=== PATIENT | female | born 1975 | race Caucasian/White ===

== ENCOUNTER 2017-09-18 02:11 | Emergency (ER) | payer MEDICAID ==
[~2017-09-18] VITALS: Ht 170.2 cm; Wt 77.0 kg
[~2017-09-18 02:11] MED LIST: ALBU18HF2 IH; ALBU18HF2 INH; ALBU8.5H8 IH; CLIN-79 PO; CYCL-1 PO; DIAZ5TAB4 PO; DIPH-423 PO; HYDR-569 PO; IBUP-1051 PO; IBUP-1986 PO; KETO10TA2 PO; NAPR250T4 PO; NAPR500T4 PO; NO HOME MEDS; PHEN-716 PO; PRED20TA PO
[2017-09-18] MEDS ORDERED: NAPR-56 PO (02:34)
[2017-09-18] MEDS ORDERED: CLIN300C3 PO (02:34)
[2017-09-18] MEDS ORDERED: clindamycin 150mg capsule PO ONE (02:35)
[2017-09-18] MEDS ORDERED: HYDROcodone/acetaminophen 10/325mg tab PO ONE (02:35)
[2017-09-18] MEDS ORDERED: naproxen 500mg tablet PO ONE (02:35)
[2017-09-18 03:09] VITALS: BP 132/85
== END 2017-09-18 03:10 | disposition home or self-care (01) ==
LOC: ER 02:11
DX: K04.7 Periapical abscess without sinus (principal); G89.29 Other chronic pain; G43.909 Migraine, unspecified, not intractable, without status migrainosus; F12.10 Cannabis abuse, uncomplicated; F15.10 Other stimulant abuse, uncomplicated; Z88.0 Allergy status to penicillin; Z88.1 Allergy status to other antibiotic agents; Z79.899 Other long term (current) drug therapy
CPT/HCPCS: 99284

== ENCOUNTER 2017-10-31 22:41 | Emergency (ER) | payer MEDICAID ==
[~2017-10-31] VITALS: Ht 170.2 cm; Wt 60.4 kg
[~2017-10-31 22:41] MED LIST changes: +NAPR-996 PO; -NAPR500T4 PO
[2017-10-31] MEDS ORDERED: normal saline 1000ML IV soln IVB ONE (22:55)
[2017-10-31] MEDS ORDERED: acetaminophen 325mg tablet PO ONE (23:05)
[2017-10-31 23:25] LABS: BASOPHILS % (AUTO) 0.2 % (0-1); EOSINOPHILS % (AUTO) 0.1 % (0-6); HEMATOCRIT 41.7 % (35.0-45.0); HEMOGLOBIN 14.6 g/dl (12.0-16.0); LYMPHOCYTES # (AUTO) 0.4 X10'3 (1.1-4.8); LYMPHOCYTES % (AUTO) 8.8 % (21-51); MEAN CORPUSCULAR HEMOGLOBIN 28.5 PG (27.0-31.0); MEAN CORPUSCULAR HGB CONC 35.1 % (33.0-36.5); MEAN CORPUSCULAR VOLUME 81.2 FL (78-98); MEAN PLATELET VOLUME 6.8 FL (7.4-10.4); MONOCYTES # (AUTO) 0.3 X10'3 (0-0.9); MONOCYTES % (AUTO) 5.9 % (2-12); NEUTROPHILS # (AUTO) 4.3 X10'3 (1.8-7.7); PLATELET COUNT 237 X10'3 (140-440); RED BLOOD COUNT 5.13 X10'6 (4.20-5.60); RED CELL DISTRIBUTION WIDTH 13.3 % (11.5-14.5); WHITE BLOOD COUNT 5.1 X10'3 (4.5-11.0)
[2017-10-31 23:37] LABS: PARTIAL THROMBOPLASTIN TIME 31 SECONDS (22-32); PROTHROMBIN TIME 10.5 SECONDS (9.0-12.0)
[2017-10-31 23:41] LABS: ALANINE AMINOTRANSFERASE 35 U/L (12-78); ALBUMIN 3.9 G/DL (3.4-5.0); ALKALINE PHOSPHATASE 58 IU/L (46-116); ANION GAP 10 (8-16); BILIRUBIN,TOTAL 0.4 MG/DL (0.1-1.0); BLOOD UREA NITROGEN 8 MG/DL (7-18); BUN/CREATININE RATIO 10.3 (6.6-38.0); CALCIUM 8.8 MG/DL (8.5-10.1); CHLORIDE 97 MMOL/L (99-107); CREATININE 0.78 MG/DL (0.40-0.90); GLUCOSE 105 MG/DL (70-104); MAGNESIUM 1.4 MG/DL (1.5-2.4); SODIUM 133 MMOL/L (135-145); TOTAL CARBON DIOXIDE 25.8 MMOL/L (24-32); TOTAL PROTEIN 7.7 G/DL (6.4-8.2); eGFR 82 ML/MIN
[2017-10-31 23:54] LABS: ASPARTATE AMINO TRANSFERASE 28 U/L (10-37); POTASSIUM 3.9 MMOL/L (3.5-5.1)
[2017-11-01 00:52] LABS: CLARITY,URINE SLIGHTLY CLOUDY (Clear); COLOR,URINE YELLOW (Yellow); GLUCOSE, URINE NEGATIVE (Neg); KETONES,URINE NEGATIVE (Neg); LEUKOCYTE ESTERASE ,URINE NEGATIVE (Neg); NITRITES, URINE POSITIVE (Neg); OCCULT BLOOD,URINE NEGATIVE (Neg); PROTEIN,URINE NEGATIVE (Neg); UROBILINOGEN,URINE 0.2 E.U/dL (0.2-1.0)
[2017-11-01 00:53] LABS: URINE HCG NEGATIVE (NEG)
[2017-11-01 01:00] LABS: UA COLLECTION TYPE CLN CATCH MIDSTREAM
[2017-11-01 01:02] LABS: BACTERIA,URINE 4+ /HPF (Neg); RBC,URINE NONE SEEN /HPF (0-2); SQUAMOUS EPITHELIAL CELL,UR MODERATE /LPF (FEW); WBC,URINE 0-4 /HPF (0-4)
[2017-11-01 01:20] VITALS: BP 114/76
== END 2017-11-01 01:21 | disposition home or self-care (01) ==
LOC: ER 22:42
DX: J11.1 Influenza due to unidentified influenza virus with other respiratory manifestations (principal); G89.29 Other chronic pain; G43.909 Migraine, unspecified, not intractable, without status migrainosus; F17.200 Nicotine dependence, unspecified, uncomplicated; F12.10 Cannabis abuse, uncomplicated; F15.10 Other stimulant abuse, uncomplicated; Z88.0 Allergy status to penicillin; Z88.1 Allergy status to other antibiotic agents; Z79.899 Other long term (current) drug therapy
CPT/HCPCS: 36415; 71045; 80053; 81001; 81025; 83605; 83735; 84145; 85025; 85610; 85730; 87040; 87077; 87088; 87186; 87502; 87503; 93005; 96360; 96361; 99285; J7030

== ENCOUNTER 2018-06-17 20:46 | Emergency (ER) | payer MEDICAID ==
[~2018-06-17] VITALS: Ht 170.2 cm; Wt 71.0 kg
[~2018-06-17 20:46] MED LIST changes: -CLIN-79 PO; +CLIN150C8 PO; +HYDR-4383 PO; -HYDR-569 PO
[2018-06-17 21:00] VITALS: BP 141/89
== END 2018-06-17 23:36 | disposition left against medical advice (07) ==
LOC: ER 20:46
DX: H92.11 Otorrhea, right ear (principal); Z53.21 Procedure and treatment not carried out due to patient leaving prior to being seen by health care provider

== ENCOUNTER 2018-10-28 21:06 | Emergency (ER) | payer MEDICAID ==
--- NOTE | 2018-10-28 21:27 | NUR ---
pt presents to ER with 2 other family members who are also checking in for unrelated complaints. pt not in lobby when called for triage. per previous editor in chief the patients told registration they were going to go out to the car and eat while waiting for triage.
== END 2018-10-28 22:02 | disposition left against medical advice (07) ==
LOC: ER 21:06
DX: K04.7 Periapical abscess without sinus (principal); Z53.21 Procedure and treatment not carried out due to patient leaving prior to being seen by health care provider

== ENCOUNTER 2019-05-27 17:36 | Emergency (ER) | payer MEDICAID ==
[~2019-05-27] VITALS: Ht 170.2 cm; Wt 72.7 kg
[2019-05-27 18:00] VITALS: BP 120/70
[2019-05-27] MEDS ORDERED: TETanus/Pertussis (Acell)/Diphther VAC/PF (Tdap-Adult) 0.5ml syringe IM ONE (18:55)
== END 2019-05-27 19:25 | disposition home or self-care (01) ==
LOC: ER 17:36
DX: S61.211A Laceration without foreign body of left index finger without damage to nail, initial encounter (principal); G43.909 Migraine, unspecified, not intractable, without status migrainosus; G89.29 Other chronic pain; F41.9 Anxiety disorder, unspecified; F12.90 Cannabis use, unspecified, uncomplicated; F15.90 Other stimulant use, unspecified, uncomplicated; Z90.89 Acquired absence of other organs; Z98.890 Other specified postprocedural states; Z88.1 Allergy status to other antibiotic agents; Z88.0 Allergy status to penicillin; Z79.899 Other long term (current) drug therapy; W26.0XXA Contact with knife, initial encounter; Y93.89 Activity, other specified; Y92.89 Other specified places as the place of occurrence of the external cause; Y99.8 Other external cause status
CPT/HCPCS: 12002; 90471; 99283

== ENCOUNTER 2019-09-23 18:03 | Emergency (ER) | payer MEDICAID ==
[~2019-09-23] VITALS: Ht 170.2 cm; Wt 71.9 kg
[2019-09-23 18:15] VITALS: BP 143/96
[2019-09-23] MEDS ORDERED: HYDROcodone/acetaminophen 5mg/325mg tablet PO ONE (19:25)
[2019-09-23] MEDS ORDERED: ketorolac trometh. 30mg/ml inj. IM ONE (19:25)
[2019-09-23] MEDS ORDERED: IBUP-1984 PO (19:28)
[2019-09-23] MEDS ORDERED: HYDR-4383 PO (19:28)
== END 2019-09-23 20:54 | disposition home or self-care (01) ==
LOC: ER 18:03
DX: S82.61XA Displaced fracture of lateral malleolus of right fibula, initial encounter for closed fracture (principal); G43.909 Migraine, unspecified, not intractable, without status migrainosus; G89.29 Other chronic pain; F12.90 Cannabis use, unspecified, uncomplicated; F17.200 Nicotine dependence, unspecified, uncomplicated; Z98.890 Other specified postprocedural states; Z90.89 Acquired absence of other organs; Z88.1 Allergy status to other antibiotic agents; Z88.0 Allergy status to penicillin; Z79.899 Other long term (current) drug therapy; X50.1XXA Overexertion from prolonged static or awkward postures, initial encounter; Y93.89 Activity, other specified; Y92.89 Other specified places as the place of occurrence of the external cause; Y99.9 Unspecified external cause status
CPT/HCPCS: 29515; 73610; 96372; 99284; J1885

== ENCOUNTER 2020-06-09 20:10 | Emergency (ER) | payer MEDICAID ==
[~2020-06-09] VITALS: Ht 170.2 cm; Wt 72.7 kg
[2020-06-09] MEDS ORDERED: ondansetron/PF 4mg/2ml inj IV ONE (21:20)
[2020-06-09] MEDS ORDERED: morphine 2 MG/ML inj. syringe IV ONE (21:20)
[2020-06-09] MEDS ORDERED: morphine 4 MG/ML inj SYRINge IV ONE (21:25)
[2020-06-09] MEDS ORDERED: LIDOcaine 1% W/epiNEPHrine 1:200,000 10ml vial IJ ONE (22:30)
[2020-06-09] MEDS ORDERED: LIDOcaine 1% W/epiNEPHrine 1:100,000 20ml vial IJ ONE (22:45)
[2020-06-10] MEDS ORDERED: bacitracin 15gm ointment TP ONE (00:10)
[2020-06-10] MEDS ORDERED: CEPH500C5 PO (00:58)
[2020-06-10] MEDS ORDERED: cephalexin 500mg capsule PO ONE (01:00)
[2020-06-10] MEDS ORDERED: oxyCODONE/APAP 5-325mg tablet PO ONE (01:00)
[2020-06-10 01:23] VITALS: BP 125/85
[2020-06-10] MEDS ORDERED: HYDR-3965 PO (16:50)
== END 2020-06-10 01:26 | disposition home or self-care (01) ==
LOC: ER 20:10
DX: S81.812A Laceration without foreign body, left lower leg, initial encounter (principal); M79.605 Pain in left leg; G43.909 Migraine, unspecified, not intractable, without status migrainosus; G89.29 Other chronic pain; F41.9 Anxiety disorder, unspecified; F12.90 Cannabis use, unspecified, uncomplicated; F15.90 Other stimulant use, unspecified, uncomplicated; Z87.440 Personal history of urinary (tract) infections; Z90.89 Acquired absence of other organs; Z98.890 Other specified postprocedural states; Z88.1 Allergy status to other antibiotic agents; Z88.0 Allergy status to penicillin; Z79.2 Long term (current) use of antibiotics; Z79.899 Other long term (current) drug therapy; W45.8XXA Other foreign body or object entering through skin, initial encounter; Y93.89 Activity, other specified; Y92.89 Other specified places as the place of occurrence of the external cause; Y99.8 Other external cause status
CPT/HCPCS: 12002; 96374; 96375; 99285; J2270; J2405

== ENCOUNTER 2020-06-10 15:50 | Emergency (ER) | payer MEDICAID ==
[~2020-06-10] VITALS: Ht 172.7 cm; Wt 80.0 kg
[~2020-06-10 15:50] MED LIST changes: +CEPH500C5 PO
[2020-06-10] MEDS ORDERED: HYDROcodone/acetaminophen 10/325mg tab PO ONE (16:40)
[2020-06-10] MEDS ORDERED: HYDR-3965 PO (16:50)
--- NOTE | 2020-06-10 17:21 | NUR ---
PT FEELING BETTER NOW. PT FEELING TIRED SINCE SHE WAS UNABLE TO GET ANY SLEEP LAST NIGHT DUE TO THE PAIN. PT GIVEN RX FOR PAIN MED. WILL F/U WITH ORTHOPEDIST INSTRUCTED DURING HER VISIT LAST NIGHT.
[2020-06-10 17:23] VITALS: BP 127/87
== END 2020-06-10 17:25 | disposition home or self-care (01) ==
LOC: ER 15:51
DX: S81.812D Laceration without foreign body, left lower leg, subsequent encounter (principal); G43.909 Migraine, unspecified, not intractable, without status migrainosus; G89.29 Other chronic pain; M54.9 Dorsalgia, unspecified; F41.9 Anxiety disorder, unspecified; F12.10 Cannabis abuse, uncomplicated; F15.10 Other stimulant abuse, uncomplicated; Z88.1 Allergy status to other antibiotic agents; Z88.0 Allergy status to penicillin; Z88.8 Allergy status to other drugs, medicaments and biological substances; Z79.899 Other long term (current) drug therapy; Z98.890 Other specified postprocedural states; V49.9XXD Car occupant (driver) (passenger) injured in unspecified traffic accident, subsequent encounter
CPT/HCPCS: 99283

== ENCOUNTER 2020-06-30 03:03 | Emergency (ER) | payer MEDICAID ==
[~2020-06-30] VITALS: Ht 167.6 cm; Wt 75.0 kg
[2020-06-30 03:07] VITALS: BP 138/101
[2020-06-30] MEDS ORDERED: DOXYCYCLINE 100MG CAPSULE PO STA (04:50)
[2020-06-30] MEDS ORDERED: DOXY100C43 PO (04:53)
[2020-06-30] MEDS ORDERED: BACI1PAC7 TP (04:53)
[2020-06-30] MEDS ORDERED: LIDOcaine/epinephrine/tetracaine TOPICAL sol 3 ML syringe TOP ONE (05:00)
== END 2020-06-30 06:02 | disposition home or self-care (01) ==
LOC: ER 03:03
DX: S81.812D Laceration without foreign body, left lower leg, subsequent encounter (principal); Z48.02 Encounter for removal of sutures; G43.909 Migraine, unspecified, not intractable, without status migrainosus; G89.29 Other chronic pain; F41.9 Anxiety disorder, unspecified; F12.90 Cannabis use, unspecified, uncomplicated; F15.90 Other stimulant use, unspecified, uncomplicated; Z87.440 Personal history of urinary (tract) infections; Z90.89 Acquired absence of other organs; Z98.890 Other specified postprocedural states; Z88.0 Allergy status to penicillin; Z88.1 Allergy status to other antibiotic agents; Z79.2 Long term (current) use of antibiotics; Z79.899 Other long term (current) drug therapy; X58.XXXD Exposure to other specified factors, subsequent encounter
CPT/HCPCS: 99283

== ENCOUNTER 2022-11-23 01:18 | Emergency (ER) | payer MEDICAID ==
[~2022-11-23 01:18] MED LIST changes: +ALBU8.5H17 IH; -ALBU8.5H8 IH; -CEPH500C5 PO; +NAPR-1170 PO; -NAPR250T4 PO
== END 2022-11-23 02:28 | disposition left against medical advice (07) ==
LOC: ER 01:18
DX: R53.1 Weakness (principal); Z53.21 Procedure and treatment not carried out due to patient leaving prior to being seen by health care provider

== ENCOUNTER 2024-01-04 22:29 | Emergency (ER) | payer MEDICAID ==
[~2024-01-04] VITALS: Ht 167.6 cm; Wt 81.8 kg
[~2024-01-04 22:29] MED LIST changes: +CLIN-214 PO; -CLIN150C8 PO
[2024-01-04 22:33] VITALS: TEMP 98.5
[2024-01-05] MEDS: HYDROcodone/acetaminophen 5mg/325mg tablet PO ONE (03:37)
[2024-01-05 03:46] VITALS: BP 176/113; PULSE 86; RESP 16; O2SAT 99
[2024-01-05] MEDS: cloNIDine 0.1 mg tablet PO ONE (04:01)
== END 2024-01-05 04:03 | disposition left against medical advice (07) ==
LOC: ER 22:30
DX: S80.01XA Contusion of right knee, initial encounter (principal); S50.02XA Contusion of left elbow, initial encounter; Z88.0 Allergy status to penicillin; Z88.8 Allergy status to other drugs, medicaments and biological substances; G43.909 Migraine, unspecified, not intractable, without status migrainosus; G89.29 Other chronic pain; M54.9 Dorsalgia, unspecified; F41.9 Anxiety disorder, unspecified; F12.90 Cannabis use, unspecified, uncomplicated; F15.90 Other stimulant use, unspecified, uncomplicated; W01.0XXA Fall on same level from slipping, tripping and stumbling without subsequent striking against object, initial encounter; Y93.89 Activity, other specified; Y92.89 Other specified places as the place of occurrence of the external cause; Y99.8 Other external cause status
CPT/HCPCS: 29505; 73080; 73560; 99284

== ENCOUNTER 2024-04-20 21:43 | Emergency (ER) | payer MEDICAID ==
[~2024-04-20] VITALS: Ht 160 cm; Wt 86.8 kg
[2024-04-20 22:42] LABS: BASOPHILS # (AUTO) 0.1 X10'3 (0-0.2); EOSINOPHILS # (AUTO) 0.1 X10'3 (0-0.9); EOSINOPHILS % (AUTO) 1.3 % (0-6); HEMOGLOBIN 14.6 g/dl (12.0-16.0); LYMPHOCYTES # (AUTO) 2.2 X10'3 (1.1-4.8); LYMPHOCYTES % (AUTO) 25.7 % (21-51); MEAN CORPUSCULAR HEMOGLOBIN 27.9 PG (27.0-31.0); MEAN CORPUSCULAR HGB CONC 33.2 g/dL (33.0-36.5); MEAN CORPUSCULAR VOLUME 83.9 FL (78-98); MEAN PLATELET VOLUME 6.1 FL (7.4-10.4); MONOCYTES # (AUTO) 0.7 X10'3 (0-0.9); MONOCYTES % (AUTO) 8.4 % (2-12); NEUTROPHILS # (AUTO) 5.4 X10'3 (1.8-7.7); NEUTROPHILS % (AUTO) 63.6 % (42-75); PLATELET COUNT 266 X10'3 (140-440); RED BLOOD COUNT 5.24 X10'6 (4.20-5.60); WHITE BLOOD COUNT 8.5 X10'3 (4.5-11.0)
[2024-04-20 22:49] LABS: APTT 28 SECONDS (22-32); INR 0.9 INR; PROTHROMBIN TIME 9.9 SECONDS (9.0-12.0)
[2024-04-20 22:50] LABS: HCG SERUM QL NEGATIVE
[2024-04-20 22:53] LABS: ALANINE AMINOTRANSFERASE 74 U/L (12-78); ALBUMIN 3.8 G/DL (3.4-5.0); ALKALINE PHOSPHATASE 60 IU/L (46-116); ANION GAP 8 (8-16); ASPARTATE AMINO TRANSFERASE 67 U/L (10-37); BILIRUBIN,TOTAL 0.4 MG/DL (0.1-1.0); BLOOD UREA NITROGEN 13 MG/DL (7-18); BUN/CREATININE RATIO 16.9 (10.0-20.0); CALCIUM 8.9 MG/DL (8.5-10.1); CHLORIDE 103 MMOL/L (99-107); CREATININE 0.77 MG/DL (0.40-0.90); GLUCOSE 102 MG/DL (70-104); LIPASE 72 U/L (16-77); POTASSIUM 4.3 MMOL/L (3.5-5.1); SODIUM 139 MMOL/L (135-145); TOTAL CARBON DIOXIDE 27.7 MMOL/L (24-32); TOTAL PROTEIN 7.7 G/DL (6.4-8.2); eCRCL 76 ML/MIN; eGFR 81 ML/MIN
--- NOTE | 2024-04-21 03:03 | NUR ---
KATIA CORRALES, [place], SPEAKING TO PT AT BEDSIDE.
[2024-04-21] MEDS ORDERED: ONDA-245 PO (03:05)
[2024-04-21] MEDS ORDERED: HYDR-3965 PO (03:05)
[2024-04-21] MEDS: ondansetron 4mg rapidly disintigrating tab PO ONE (03:07)
[2024-04-21] MEDS: ibuprofen tablet 400 MG TABLET PO ONE (03:08)
[2024-04-21] MEDS: HYDROcodone/acetaminophen 5mg/325mg tablet PO ONE (03:08)
[2024-04-21 03:47] VITALS: BP 152/94; PULSE 97; RESP 16; TEMP 97.7; O2SAT 98
== END 2024-04-21 03:49 | disposition home or self-care (01) ==
LOC: ER 21:43
DX: R10.9 Unspecified abdominal pain (principal); G43.909 Migraine, unspecified, not intractable, without status migrainosus; F41.9 Anxiety disorder, unspecified; F12.90 Cannabis use, unspecified, uncomplicated; F15.90 Other stimulant use, unspecified, uncomplicated; Z91.041 Radiographic dye allergy status; Z88.0 Allergy status to penicillin; Z79.899 Other long term (current) drug therapy; Z79.2 Long term (current) use of antibiotics
CPT/HCPCS: 36415; 74176; 80053; 83690; 84703; 85025; 85610; 85730; 99284

== ENCOUNTER 2024-08-16 20:33 | Emergency (ER) | payer MEDICAID ==
[~2024-08-16] VITALS: Ht 162.6 cm; Wt 76.5 kg
[~2024-08-16 20:33] MED LIST changes: +ONDA-245 PO
[2024-08-16] MEDS ORDERED: iohexol 300mg/ml 100ml inj. ONE (20:54)
[2024-08-16 21:15] LABS: BASOPHILS # (AUTO) 0.1 X10'3 (0-0.2); EOSINOPHILS # (AUTO) 0.1 X10'3 (0-0.9); EOSINOPHILS % (AUTO) 1.7 % (0-6); HEMATOCRIT 42.1 % (35.0-45.0); HEMOGLOBIN 14.3 g/dl (12.0-16.0); LYMPHOCYTES # (AUTO) 2.5 X10'3 (1.1-4.8); LYMPHOCYTES % (AUTO) 32.2 % (21-51); MEAN CORPUSCULAR HEMOGLOBIN 28.4 PG (27.0-31.0); MEAN CORPUSCULAR HGB CONC 33.9 g/dL (33.0-36.5); MEAN CORPUSCULAR VOLUME 83.9 FL (78-98); MEAN PLATELET VOLUME 6.8 FL (7.4-10.4); MONOCYTES # (AUTO) 0.7 X10'3 (0-0.9); MONOCYTES % (AUTO) 8.3 % (2-12); NEUTROPHILS # (AUTO) 4.5 X10'3 (1.8-7.7); NEUTROPHILS % (AUTO) 56.8 % (42-75); PLATELET COUNT 322 X10'3 (140-440); RED BLOOD COUNT 5.02 X10'6 (4.20-5.60); RED CELL DISTRIBUTION WIDTH 13.9 % (11.5-14.5); WHITE BLOOD COUNT 7.9 X10'3 (4.5-11.0)
[2024-08-16 21:23] LABS: PROTHROMBIN TIME 10.4 SECONDS (9.0-12.0)
[2024-08-16 21:27] LABS: ALANINE AMINOTRANSFERASE 34 U/L (12-78); ALBUMIN 3.8 G/DL (3.4-5.0); ALBUMIN/GLOBULIN RATIO 1.1 (1.1-1.5); ALKALINE PHOSPHATASE 72 IU/L (46-116); ANION GAP 10 (8-16); ASPARTATE AMINO TRANSFERASE 27 U/L (10-37); BILIRUBIN,TOTAL 0.4 MG/DL (0.1-1.0); BLOOD UREA NITROGEN 19 MG/DL (7-18); CALCIUM 9.2 MG/DL (8.5-10.1); CHLORIDE 106 MMOL/L (99-107); CREATININE 0.95 MG/DL (0.40-0.90); GLUCOSE 109 MG/DL (70-104); POTASSIUM 3.6 MMOL/L (3.5-5.1); SODIUM 143 MMOL/L (135-145); TOTAL CARBON DIOXIDE 26.8 MMOL/L (24-32); TOTAL PROTEIN 7.2 G/DL (6.4-8.2); eCRCL 64 ML/MIN; eGFR 63 ML/MIN
[2024-08-16] MEDS: normal saline 1000ml 1,000 ML IV ONE (21:42)
[2024-08-16] MEDS: ondansetron/PF 4mg/2ml inj IV ONE (21:49)
[2024-08-16] MEDS: morphine 4 MG/ML inj SYRINge IV ONE (21:50)
[2024-08-16] MEDS ORDERED: BISA-78 PO (22:21)
[2024-08-16] MEDS ORDERED: HYDR-3965 PO (22:21)
[2024-08-16] MEDS: HYDROcodone/acetaminophen 5mg/325mg tablet PO ONE (22:26)
[2024-08-16 22:29] VITALS: BP 140/90; PULSE 92; RESP 18; TEMP 98.6; O2SAT 98
== END 2024-08-16 22:32 | disposition home or self-care (01) ==
LOC: ER 20:33
DX: S01.81XA Laceration without foreign body of other part of head, initial encounter (principal); K59.00 Constipation, unspecified; F41.9 Anxiety disorder, unspecified; F15.90 Other stimulant use, unspecified, uncomplicated; F12.90 Cannabis use, unspecified, uncomplicated; G43.909 Migraine, unspecified, not intractable, without status migrainosus; Z88.0 Allergy status to penicillin; Z88.1 Allergy status to other antibiotic agents; Z90.89 Acquired absence of other organs; Z98.890 Other specified postprocedural states; W01.0XXA Fall on same level from slipping, tripping and stumbling without subsequent striking against object, initial encounter; Y93.89 Activity, other specified; Y92.89 Other specified places as the place of occurrence of the external cause; Y99.8 Other external cause status
CPT/HCPCS: 36415; 70450; 71260; 72125; 74177; 80053; 85025; 85610; 86885; 86900; 86901; 96361; 96374; 96375; 99285; J2270; J2405; J7030; L0172; Q9967

== ENCOUNTER 2024-12-08 13:31 | Emergency (ER) | payer MEDICAID ==
[~2024-12-08] VITALS: Ht 167.6 cm; Wt 72.7 kg
[~2024-12-08 13:31] MED LIST changes: +BISA-78 PO; +NAPR-1168 PO; -NAPR-996 PO
[2024-12-08 13:46] VITALS: BP 151/100; PULSE 96; RESP 18; TEMP 97.1; O2SAT 100
[2024-12-08 14:09] LABS: BASOPHILS # (AUTO) 0.1 X10'3 (0-0.2); BASOPHILS % (AUTO) 0.8 % (0-1); EOSINOPHILS # (AUTO) 0.1 X10'3 (0-0.9); EOSINOPHILS % (AUTO) 1.5 % (0-6); HEMATOCRIT 41.4 % (35.0-45.0); HEMOGLOBIN 13.8 g/dl (12.0-16.0); LYMPHOCYTES # (AUTO) 2.4 X10'3 (1.1-4.8); LYMPHOCYTES % (AUTO) 32.7 % (21-51); MEAN CORPUSCULAR HEMOGLOBIN 27.3 PG (27.0-31.0); MEAN CORPUSCULAR HGB CONC 33.3 g/dL (33.0-36.5); MEAN CORPUSCULAR VOLUME 82.2 FL (78-98); MEAN PLATELET VOLUME 6.4 FL (7.4-10.4); MONOCYTES # (AUTO) 0.4 X10'3 (0-0.9); NEUTROPHILS # (AUTO) 4.4 X10'3 (1.8-7.7); PLATELET COUNT 329 X10'3 (140-440); RED BLOOD COUNT 5.03 X10'6 (4.20-5.60); RED CELL DISTRIBUTION WIDTH 13.4 % (11.5-14.5); WHITE BLOOD COUNT 7.5 X10'3 (4.5-11.0)
[2024-12-08 14:39] LABS: ALBUMIN 3.3 G/DL (3.4-5.0); ANION GAP 6 (8-16); BLOOD UREA NITROGEN 17 MG/DL (7-18); BUN/CREATININE RATIO 24.3 (10.0-20.0); CALCIUM 8.7 MG/DL (8.5-10.1); CHLORIDE 106 MMOL/L (99-107); GLUCOSE 95 MG/DL (70-104); LIPASE 45 U/L (16-77); POTASSIUM 3.6 MMOL/L (3.5-5.1); PRO BRAIN NATRIURETIC PEPTIDE 93 PG/ML (0-125); SODIUM 141 MMOL/L (135-145); TOTAL CARBON DIOXIDE 28.9 MMOL/L (24-32); eCRCL 93 ML/MIN; eGFR 90 ML/MIN
== END 2024-12-08 16:08 | disposition left against medical advice (07) ==
LOC: ER 13:32
DX: R07.89 Other chest pain (principal); G89.29 Other chronic pain; M54.9 Dorsalgia, unspecified; F12.90 Cannabis use, unspecified, uncomplicated; F15.90 Other stimulant use, unspecified, uncomplicated; F41.9 Anxiety disorder, unspecified; G43.909 Migraine, unspecified, not intractable, without status migrainosus; Z88.1 Allergy status to other antibiotic agents; Z88.0 Allergy status to penicillin; Z79.1 Long term (current) use of non-steroidal anti-inflammatories (NSAID); Z79.899 Other long term (current) drug therapy; Z98.890 Other specified postprocedural states
CPT/HCPCS: 36415; 80048; 83690; 83735; 83880; 84484; 85025; 93005; 99284